=== PATIENT | male | born 1960 | race Caucasian/White ===

== ENCOUNTER 2016-05-28 12:17 | Emergency (ER) | payer OTHER ==
[2016-05-28 12:44] LABS: ABSOLUTE EOSINOPHILS # (AUTO) 0.1 10^3/uL (0.0-0.6); ABSOLUTE LYMPHOCYTES (AUTO) 0.7 10^3/uL (0.5-4.7); ABSOLUTE MONOCYTES (AUTO) 0.5 10^3/uL (0.1-1.4); ABSOLUTE NEUT (AUTO) 5.8 10^3/uL (1.7-8.2); BASOPHILS % (AUTO) 0.6 % (0-2); EOSINOPHILS % (AUTO) 1.1 % (0-6); HEMATOCRIT 39.4 % (37.9-51.0); HEMOGLOBIN 13.5 g/dL (13.5-17.0); HGB HCT DIFFERENCE 1.1; MEAN CORPUSCULAR HEMOGLOBIN 29.9 pg (27.0-33.4); MEAN CORPUSCULAR HGB CONC 34.2 g/dL (32.0-36.0); MEAN CORPUSCULAR VOLUME 87 fl (80-97); MONOCYTES % (AUTO) 6.6 % (3-13); RED BLOOD COUNT 4.52 10^6/uL (4.35-5.55); SEGMENTED NEUTROPHILS % (AUTO) 81.7 % (42-78); WHITE BLOOD COUNT 7.1 10^3/uL (4.0-10.5)
--- NOTE | 2016-05-28 12:45 | ER Document Report ---
ED Hip Pain/Injury - General Chief Complaint: Hip Pain Stated Complaint: RIGHT HIP PAIN Time seen by provider: 12:44 Mode of Arrival: Ambulatory Information source: Patient Notes: This is a 56-year-old man with a history of bilateral hip replacements, status post hip dislocation in the past requiring relocation. Patient was usual state of health when he was bending over cleaning out the catheter this morning, felt his right hip pop out. Patient was brought in by EMS. He was given 3 mg of Dilaudid and 8 mg of Zofran in route. Patient last ate 2130 last night. TRAVEL OUTSIDE OF THE [place] IN LAST 30 DAYS: No - HPI Patient complains to provider of: Hip Occurred: Just prior to arrival Where: Home Onset/Duration: Sudden Quality of pain: Dull Severity: Severe Pain Level: 5 Context: Other - Patient just bent over and felt the hip go out of place. Symptoms prior to fall: None Symptoms since fall: None Skin Color: Normal Skin Temperature: Warm Pain with palpation of the pelvis: No Use of anticoagulant: No: ASA, Lovenox, Plavix, Pradexa, Warfarin, Other Associated Symptoms: denies: None, Loss of control/bowel, Loss of control/ bladder, Motor loss, Sensory loss, Other Other injuries: denies: Abdomen, Back, Chest, Face, Head, Neck, LUE, LLE, RUE, RLE - Related Data Allergies/Adverse Reactions: No Known Allergies Allergy (Unverified 10/20/15 22:30) Past Medical History - General Information source: Patient - Social History Smoking Status: Former Smoker Cigarette use (# per day): No Chew tobacco use (# tins/day): Yes Smoking Education Provided: No Frequency of alcohol use: None Drug Abuse: None Lives with: Family Family History: Reviewed & Not Pertinent Patient has suicidal ideation: No Patient has homicidal ideation: No - Past Medical History Cardiac Medical History: Reports: Hx Hypertension Pulmonary Medical History: Reports: None EENT Medical History: Reports: None Neurological Medical History: Reports: None Endocrine Medical History: Reports: None Renal/ Medical History: Reports: None Malignancy Medical History: Reports None GI Medical History: Reports: None Musculoskeltal Medical History: Reports Other - I lateral hip ORIF's, history of dislocated hip Skin Medical History: Reports None Psychiatric Medical History: Reports: Hx Depression Past Surgical History: Reports: Hx Abdominal Surgery - hernia, Hx Orthopedic Surgery - bilateral hip - Immunizations Hx Diphtheria, Pertussis, Tetanus Vaccination: Yes Review of Systems - Review of Systems Constitutional: denies: Chills, Fever EENT: No symptoms reported Cardiovascular: No symptoms reported Respiratory: No symptoms reported Gastrointestinal: No symptoms reported Genitourinary: No symptoms reported Male Genitourinary: No symptoms reported Musculoskeletal: See HPI Skin: No symptoms reported Hematologic/Lymphatic: No symptoms reported Neurological/Psychological: No symptoms reported Physical Exam - Vital signs Vitals: Temp Pulse Resp BP Pulse Ox 98.0 F 77 16 146/92 H 93 05/28/16 12:39 05/28/16 12:39 05/28/16 12:39 05/28/16 12:39 05/28/16 12:39 Notes: Physical exam: GENERAL: 56-year-old man, alert and oriented 3, GCS 15. HEAD: Atraumatic, normocephalic. EYES: Pupils equal round and reactive to light, extraocular movements intact, sclera anicteric, conjunctiva are normal. ENT: TMs normal, nares patent, oropharynx clear without exudates. Moist mucous membranes. NECK: Normal range of motion, supple without lymphadenopathy or JVD. LUNGS: Breath sounds clear to auscultation bilaterally and equal. No wheezes rales or rhonchi. HEART: Regular rate and rhythm without murmurs, rubs or gallops. ABDOMEN: Soft, normoactive bowel sounds. No tenderness to palpation. No guarding, no rebound. No masses appreciated. EXTREMITIES: Right hip deformity. Good dorsal pedal pulse on the right side. Foot is noncyanotic and warm. Patient is able to move his toes. Patient denies any numbness to the right lower extremity. NEUROLOGICAL: Cranial nerves II through XII grossly intact. Normal speech, upper motor exam normal. PSYCH: Normal mood, normal affect. SKIN: Warm, Dry, normal turgor, no rashes or lesions noted. Course - Vital Signs Vital signs: Temp Pulse Resp BP Pulse Ox 98.0 F 81 19 128/89 H 98 05/28/16 12:39 05/28/16 14:35 05/28/16 17:01 05/28/16 17:01 05/28/16 17:01 - Laboratory Result Diagrams: 05/28/16 12:35 05/28/16 12:35 Laboratory results interpreted by me: 05/28/16 12:35 Seg Neutrophils % 81.7 H Lymphocytes % 10.0 L - Diagnostic Test Radiology reviewed: Image reviewed, Reports reviewed - Right hip dislocation Procedures - Conscious Sedation Conscious sedation Time started: 13:05 Time completed: 14:30 Consent obtained: Yes Indication: right hip dislocation Last meal: last night 2100 Prior complications: Procedural sedation Normal healthy pt.: P1. - ASA Classification Airway Evaluation: Normal anatomy Mallampati Classification: Class 2 Used during procedure: Suction available, IV access obtained, Pulse ox on pt., monitoring manager on pt. Medications administered: Diprivan Reversal agents: None I personally performed/intraservice time: Sedation, Procedure, 46-60 min - See the notes and the procedure. Complications: No - Joint Reduction/Fracture Care Right Hip Time completed: 14:30 Consent obtained: Yes - verbal consent Conscious sedation: Yes Pre-procedure NV exam: Yes Fracture: Other - Right hip dislocation Post-procedure NV exam: Yes Post-reduction x-ray: Joint reduced Reduction attempts: 2 Complications: No Notes: 05/28/16 18:24 Note: Patient did require a significant amount of propofol to allow for joint reduction. During the second attempt, patient did require assisted ventilations with bag valve mask. While the patient was in deep sedation, we were able to recall locate the right hip. The patient obtains spontaneous respirations and was on the monitor the whole time. X-rays of the right hip show good relocation. Patient was observed several hours after the procedure. He was able to eat stated he felt much better and had a ride to take him home. Patient will follow -up with his primary care physician at the [place] this week. Discharge - Discharge Clinical Impression: right hip dislocation Condition: Stable Disposition: HOME, SELF-CARE Instructions: Oral Narcotic Medication ([facility]) Additional Instructions: Recommendations: Take it easy over the next few days. Follow-up with your primary care doctor on Monday: Bring a copy of today's x- rays with you when you go. Take the Vicodin ([facility]) for pain as needed. See the narcotic instruction sheet. Also follow-up with your orthopedic doctor. Return to the emergency room for worsening pain. Put the hip brace neck and when back home. Prescriptions: Hydrocodone/Acetaminophen [[facility] 5-325 mg Tablet] 1 tab PO Q6HP PRN #30 tablet PRN Reason: Forms: Return to Work
[2016-05-28] MEDS ORDERED: PROPOFOL INJ 200 MG/20 ML VIAL IV ONE ×2 (13:06→13:53)
[2016-05-28 13:11] LABS: ALANINE AMINOTRANSFERASE 45 U/L (21-72); ALBUMIN 4.4 g/dL (3.5-5.0); ALKALINE PHOSPHATASE 80 U/L (38-126); ANION GAP 9 (5-19); ASPARTATE AMINO TRANSFERASE 38 U/L (17-59); BILIRUBIN,TOTAL 0.7 mg/dL (0.2-1.3); BLOOD UREA NITROGEN 14 mg/dL (7-20); CARBON DIOXIDE 26 mmol/L (22-30); CHLORIDE 104 mmol/L (98-107); CREATININE RESULT 0.83 mg/dL (0.52-1.25); GLUCOSE 85 mg/dL (75-110); POTASSIUM 4.4 mmol/L (3.6-5.0); SODIUM 139.1 mmol/L (137-145); TOTAL PROTEIN 7.6 g/dL (6.3-8.2)
[2016-05-28] MEDS ORDERED: HYDROCODONE/ACETAMINOPHEN 5-325 MG TABLET PO ONE (16:51)
[2016-05-28 17:06] VITALS: BP 128/89
== END 2016-05-28 17:18 | disposition home or self-care (01) ==
LOC: ER 12:17
PROC: 0SW9XJZ Revision of Synthetic Substitute in Right Hip Joint, External Approach (ICD-10-PCS; principal; 2016-05-28)
DX: M24.451 Recurrent dislocation, right hip (principal); M25.551 Pain in right hip; I10 Essential (primary) hypertension; Z96.643 Presence of artificial hip joint, bilateral; Z87.891 Personal history of nicotine dependence
CPT/HCPCS: 36415; 80053; 85025; 99284